=== PATIENT | male | born 2000 | race African-American/Black ===

== ENCOUNTER 2025-02-20 01:37 | Emergency (ER) | payer OTHER ==
[~2025-02-20] VITALS: Ht 185.4 cm; Wt 77.0 kg
[2025-02-20 01:47] VITALS: O2SAT 97
[2025-02-20] MEDS: ACETAMINOPHEN 500MG TABLET PO ONE (03:38)
[2025-02-20] MEDS: LIDOCAINE 5% PATCH TOP SCH (03:39)
[2025-02-20] MEDS: KETOROLAC 15MG/ML VIAL IM ONE (04:22)
[2025-02-20] MEDS ORDERED: NAPR-1176 MT (04:31)
[2025-02-20] MEDS ORDERED: CYCL5TAB3 MT (04:31)
[2025-02-20] MEDS ORDERED: LIDO-53 TP (04:31)
[2025-02-20 04:50] VITALS: BP 123/71; PULSE 65; RESP 17; TEMP 37.1; O2SAT 99
== END 2025-02-20 04:55 | disposition home or self-care (01) ==
LOC: ER 01:37
DX: S02.2XXA Fracture of nasal bones, initial encounter for closed fracture (principal); V48.5XXA Car driver injured in noncollision transport accident in traffic accident, initial encounter; Y92.410 Unspecified street and highway as the place of occurrence of the external cause; Y93.89 Activity, other specified; Y99.8 Other external cause status
CPT/HCPCS: 73080; 73590; 70450; 70486; 96372; 99285; J1885; Z7610